=== PATIENT | male | born 1995 | race Caucasian/White ===

== ENCOUNTER 2023-01-26 07:27 | Observation (INO) | payer BC ==
[2023-01-26] MEDS ORDERED: SODIUM CHLORIDE 0.9% 1,000 ML IV STA ×3 (07:33→09:17)
[2023-01-26] MEDS ORDERED: levETIRAcetam IV 500 MG/5 ML VIAL IVP STA (07:33)
[2023-01-26 07:37] LABS: Glucose,Whole Blood 101 mg/dL (70-110)
[2023-01-26] MEDS ORDERED: MORPHINE SULFATE 2 MG/ML SYRINGE IVP STA (07:40)
[2023-01-26 07:59] LABS: Basophils % (A) 1 %; Eosinophils # (A) 0.1 k/uL (0-0.7); Eosinophils % (A) 2 %; HCT 45.7 % (39.0-53.0); HGB 15.9 gm/dL (13.0-17.5); Lymphocytes # (A) 2.9 k/uL (1.0-4.8); Lymphocytes % (A) 36 %; MCH 31.5 pg (25.0-35.0); MCHC 34.7 g/dL (31.0-37.0); MCV 90.8 fL (80.0-100.0); Mean Platelet Volume 7.5; Monocytes # (A) 0.5 k/uL (0-1.0); Monocytes % (A) 6 %; Neutrophils # (A) 4.4 k/uL (1.3-7.7); Neutrophils % (A) 55 %; Platelet Count 268 k/uL (150-450); RBC 5.04 m/uL (4.30-5.90); RDW 11.7 % (11.5-15.5); WBC 8.1 k/uL (3.8-10.6)
[2023-01-26 08:09] LABS: ALT 26 U/L (4-49); AST 31 U/L (17-59); Acetaminophen <10.0 ug/mL; African American GFR (CKD) >90 (>60 ml/min/1.73 sqM); Albumin 4.7 g/dL (3.5-5.0); Alcohol <10 mg/dL; Alkaline Phosphatase 55 U/L (38-126); Anion Gap 14 mmol/L; Blood Urea Nitrogen 11 mg/dL (9-20); Calcium 9.2 mg/dL (8.4-10.2); Carbon Dioxide 20 mmol/L (22-30); Chloride 106 mmol/L (98-107); Glucose 104 mg/dL (74-99); Magnesium 2.5 mg/dL (1.6-2.3); Non-African American GFR(CKD) >90 (>60 ml/min/1.73 sqM); Salicylate <1.0 mg/dL; Sodium 140 mmol/L (137-145); Total Bilirubin 0.8 mg/dL (0.2-1.3); Total Protein 7.8 g/dL (6.3-8.2)
--- NOTE | 2023-01-26 08:16 | ED ---
General Adult HPI - General Chief complaint: Seizure Stated complaint: Seizure Time Seen by Provider: 01/26/23 07:33 Source: patient, EMS, RN notes reviewed, old records reviewed Mode of arrival: EMS - History of Present Illness Initial comments: Patient is a 28 year old male who presents emergency department for suspected new-onset seizure. Patient was found convulsing on the ground with general tonic-clonic movements at home in the bathroom this morning by a friend. Has no history of seizures. Was drinking alcohol last night and does endorse drinking 12 beers. Denies any other drug use. States he doesn't remember getting up this morning. Currently is alert and oriented 4. Believes he may have hit the side of his tongue. Did not suffer urinary incontinence. Denies any bowel or bladder incontinence or retention. Denies any lower extremity paralysis. Denies any saddle anesthesias. Is not on blood thinners. Fell down and has an abrasion on his upper lip is complaining of low back pain, paraspinal neck pain, as well as left big toe pain. Patient was playing kickball last night which is the last thing really remembers. States he was drinking last night as well. Minimal this morning with the above symptoms. His no history of seizures. No known family history of seizures. Presents for further evaluation at this time.Patient states he only drinks socially and occasionally with no history of alcohol withdrawals. - Related Data Home Medications Medication Instructions Recorded Confirmed No Known Home Medications 01/26/23 01/26/23 Previous Rx's Medication Instructions Recorded Ibuprofen [Motrin] 800 mg PO Q8HR PRN #20 tab 11/25/15 Allergies Allergy/AdvReac Type Severity Reaction Status Date / Time iodine Allergy Unknown Verified 01/26/23 08:33 Review of Systems ROS Statement: Those systems with pertinent positive or pertinent negative responses have been documented in the HPI. Review of Systems: CONST: Denies fever EYES: Denies blurry vision ENT: Denies nasal congestion C/V: Denies Chest pain RESP: Denies shortness of breath GI: Denies abdominal pain : Denies dysuria SKIN: Denies rash. MSK: Endorses back pain, left big toe pain. NEURO: Denies headache ROS Other: All systems not noted in ROS Statement are negative. Past Medical History Past Medical History: Unable to Obtain History of Any Multi-Drug Resistant Organisms: None Reported Past Surgical History: Unable to Obtain Past Psychological History: No Psychological Hx Reported Smoking Status: Unknown if ever smoked Past Alcohol Use History: Unable to Obtain Past Drug Use History: Unable to Obtain General Exam - General Exam Comments Initial Comments: General: Appears in no acute distress. HEAD: Abrasion to upper lip. Mild tenderness palpation over the bridge of the nose with no obvious deformity. Negative wade sign. Negative raccoon eyes. EYES: PERRLA, EOMI, conjunctiva normal, no discharge. Pupils are 2 mm and equal bilaterally. ENT: Hearing grossly intact, normal oropharynx. Mild abrasion to the tongue. RESPIRATORY: Clear breath sounds bilaterally. No wheezes, rales, or rhonchi. C/V: Regular rate and rhythm. S1 and S2 auscultated, no edema, peripheral pulses 2+ and intact throughout ABD: Abd is soft, nontender, nondistended EXT: Normal range of motion, no obvious deformity. Tenderness to palpation over the left big toe at the MTP joint. Tenderness to palpation of the paraspinal muscles of the cervical spine. Tenderness to palpation of the lower thoracic and lumbar spine, and appears to be midline with no obvious step-offs or deformities. Pelvis is stable. SKIN: No rashes or lesions observed on exposed skin. NEURO: Alert and oriented x 4. Cranial nerves II-XII intact. No focal sensory or strength deficits. GCS of 15. NIH is 0. Course Vital Signs 01/26/23 01/26/23 07:28 09:14 Temperature 97 F L Pulse Rate 97 74 Respiratory 19 18 Rate Blood Pressure 148/87 115/64 O2 Sat by Pulse 98 99 Oximetry Medical Decision Making - Medical Decision Making Was pt. sent in by a medical professional or institution (, PA, IGNITER ASSEMBLER, urgent care, hospital, or senior care...) When possible be specific @ -No Did you speak to anyone other than the patient for history (EMS, parent, family, police, friend...)? What history was obtained from this source @ -No Did you review nursing and triage notes (agree or disagree)? Why? @ -I reviewed and agree with nursing and triage notes Were old charts reviewed (outside hosp., previous admission, EMS record, old EKG, old radiological studies, urgent care reports/EKG's, senior care records)? Report findings @ -Old EKG reviewed from May 2021 Differential Diagnosis (chest pain, altered mental status, abdominal pain women, abdominal pain men, vaginal bleeding, weakness, fever, dyspnea, syncope, headache, dizziness, GI bleed, back pain, seizure, CVA, palpatations, mental health, musculoskeletal)? @ -Differential Seizure: Recurrent seizure disorder, febrile seizure, alcohol withdrawal, stimulants, meningitis, encephalitis, intercranial hemorrhage, intracranial tumor, stroke, eclampsia, thyrotoxicosis, hypocalcemia, hyponatremia, hypernatremia, hypomagnesemia, psychogenic, this is not meant to be an all-inclusive list. EKG interpreted by me (3pts min.). @ -As above X-rays interpreted by me (1pt min.). @ -Chest, pelvis, foot x-rays negative for any obvious traumatic injury. Right shoulder x-ray also negative for any obvious traumatic injury. CT interpreted by me (1pt min.). @ -CT imaging the spine, brain, face negative for any obvious acute treatment injury except for a subtle right nasal bone fracture. Patient is not slightly tender on that side of his nose and states it may be old. U/S interpreted by me (1pt. min.). @ -None done What testing was considered but not performed or refused? (CT, X-rays, U/S, labs)? Why? @ -None What meds were considered but not given or refused? Why? @ -None Did you discuss the management of the patient with other professionals (professionals i.e. , PA, IGNITER ASSEMBLER, lab, RT, psych nurse, social media editor, intellectual property lawyer, teacher, security control room officer, ed case manager)? Give summary @ -Discussed with the admitting physician, Dr. Polo who accepted the admission. Was smoking cessation discussed for >3mins.? @ -No Was critical care preformed (if so, how long)? @ -No Were there social determinants of health that impacted care today? How? (Homelessness, low income, unemployed, alcoholism, drug addiction, transportation, low edu. Level, literacy, decrease access to med. care, residential, rehab)? @ -No Was there de-escalation of care discussed even if they declined (Discuss DNR or withdrawal of care, Hospice)? DNR status @ -No What co-morbidities impacted this encounter? (DM, HTN, Smoking, COPD, CAD, Cancer, CVA, ARF, Chemo, Hep., AIDS, mental health diagnosis, sleep apnea, morbid obesity)? @ -None Was patient admitted / discharged? Hospital course, mention meds given and route, prescriptions, significant lab abnormalities, going to OR and other pertinent info. @ -Based on the patient's presentation and physical exam, presents with suspected new-onset seizure. We will obtain labs, as well as CT brain, CT C- spine imaging in addition to chest and pelvis x-ray and toe x-ray. Patient be symptomatically treated with IV fluids, IV analgesia medications, as well as push of IV Keppra. Seizure precautions ordered. Vital signs within acceptable limits. Cervical collar in place and will remain in place until imaging is completed. EKG showed no signs of acute ischemia.Patient's imaging negative for any obvious acute medical injury other than possible acute versus chronic right nasal bone fracture. Patient's labs to support an acute seizure, as lactic acid is elevated to 4.7. We will repeat and continue with fluid hydration. On reevaluation, patient is now complaining of right shoulder discomfort but has normal range of motion. We will obtain an x-ray of the shoulder. We discussed his workup. As this is a new seizure of unknown etiology, we will admit the patient for neuro evaluation. He was in agreement this plan. Cervical collar was removed is his C-spine was cleared. He has had no further seizures while here in the emergency department. I spoke with the admitting physician, Dr. Polo who accepted the patient. Neurology Dr. López was consulted. Undiagnosed new problem with uncertain prognosis? @ -No Drug Therapy requiring intensive monitoring for toxicity (Heparin, Nitro, Insulin, Cardizem)? @ -No Were any procedures done? @ -No Diagnosis/symptom? @ -Seizure, suspected Acute, or Chronic, or Acute on Chronic? @ -Acute Uncomplicated (without systemic symptoms) or Complicated (systemic symptoms)? @ -Complicated Side effects of treatment? @ -No Exacerbation, Progression, or Severe Exacerbation? @ -No Poses a threat to life or bodily function? How? (Chest pain, [place], [place], pneumonia, PE, COPD, DKA, ARF, appy, cholecystitis, CVA, Diverticulitis, Homicidal, Suicidal, threat to staff... and all critical care pts) @ -Potentially, yes Diagnosis/symptom? @ -Right nasal bone fracture Acute, or Chronic, or Acute on Chronic? @ -Unknown chronicity Uncomplicated (without systemic symptoms) or Complicated (systemic symptoms)? @ -Uncomplicated Side effects of treatment? @ -none Exacerbation, Progression, or Severe Exacerbation] @ -no Poses a threat to life or bodily function? @ -no Diagnosis/symptom? @ -Muscle sprains, strains Acute, or Chronic, or Acute on Chronic? @ -Acute Uncomplicated (without systemic symptoms) or Complicated (systemic symptoms)? @ -Uncomplicated Side effects of treatment? @ -none Exacerbation, Progression, or Severe Exacerbation] @ -no Poses a threat to life or bodily function? @ -no - Lab Data Result diagrams: 01/26/23 07:46 01/26/23 07:46 Lab Results 01/26/23 01/26/23 01/26/23 Range/Units 07:34 07:46 07:46 WBC 8.1 (3.8-10.6) k/uL RBC 5.04 (4.30-5.90) m/uL Hgb 15.9 (13.0-17.5) gm/dL Hct 45.7 (39.0-53.0) % MCV 90.8 (80.0-100.0) fL MCH 31.5 (25.0-35.0) pg MCHC 34.7 (31.0-37.0) g/dL RDW 11.7 (11.5-15.5) % Plt Count 268 (150-450) k/uL MPV 7.5 Neutrophils % 55 % Lymphocytes % 36 % Monocytes % 6 % Eosinophils % 2 % Basophils % 1 % Neutrophils # 4.4 (1.3-7.7) k/uL Lymphocytes # 2.9 (1.0-4.8) k/uL Monocytes # 0.5 (0-1.0) k/uL Eosinophils # 0.1 (0-0.7) k/uL Basophils # 0.0 (0-0.2) k/uL Sodium 140 (137-145) mmol/L Potassium 4.0 (3.5-5.1) mmol/L Chloride 106 (98-107) mmol/L Carbon Dioxide 20 L (22-30) mmol/L Anion Gap 14 mmol/L BUN 11 (9-20) mg/dL Creatinine 0.94 (0.66-1.25) mg/dL Est GFR (CKD-EPI)AfAm >90 (>60 ml/min/1.73 sqM) Est GFR (CKD-EPI)NonAf >90 (>60 ml/min/1.73 sqM) Glucose 104 H (74-99) mg/dL POC Glucose (mg/dL) 101 (70-110) mg/dL POC Glu Engineer Specialist ID Chris Mejia Plasma Lactic Acid Mani (0.7-2.0) mmol/L Calcium 9.2 (8.4-10.2) mg/dL Magnesium 2.5 H (1.6-2.3) mg/dL Total Bilirubin 0.8 (0.2-1.3) mg/dL AST 31 (17-59) U/L ALT 26 (4-49) U/L Alkaline Phosphatase 55 (38-126) U/L Total Protein 7.8 (6.3-8.2) g/dL Albumin 4.7 (3.5-5.0) g/dL Salicylates <1.0 mg/dL Acetaminophen <10.0 ug/mL Serum Alcohol <10 mg/dL 01/26/23 Range/Units 07:46 WBC (3.8-10.6) k/uL RBC (4.30-5.90) m/uL Hgb (13.0-17.5) gm/dL Hct (39.0-53.0) % MCV (80.0-100.0) fL MCH (25.0-35.0) pg MCHC (31.0-37.0) g/dL RDW (11.5-15.5) % Plt Count (150-450) k/uL MPV Neutrophils % % Lymphocytes % % Monocytes % % Eosinophils % % Basophils % % Neutrophils # (1.3-7.7) k/uL Lymphocytes # (1.0-4.8) k/uL Monocytes # (0-1.0) k/uL Eosinophils # (0-0.7) k/uL Basophils # (0-0.2) k/uL Sodium (137-145) mmol/L Potassium (3.5-5.1) mmol/L Chloride (98-107) mmol/L Carbon Dioxide (22-30) mmol/L Anion Gap mmol/L BUN (9-20) mg/dL Creatinine (0.66-1.25) mg/dL Est GFR (CKD-EPI)AfAm (>60 ml/min/1.73 sqM) Est GFR (CKD-EPI)NonAf (>60 ml/min/1.73 sqM) Glucose (74-99) mg/dL POC Glucose (mg/dL) (70-110) mg/dL POC Glu Engineer Specialist ID Plasma Lactic Acid Mani 4.7 H* (0.7-2.0) mmol/L Calcium (8.4-10.2) mg/dL Magnesium (1.6-2.3) mg/dL Total Bilirubin (0.2-1.3) mg/dL AST (17-59) U/L ALT (4-49) U/L Alkaline Phosphatase (38-126) U/L Total Protein (6.3-8.2) g/dL Albumin (3.5-5.0) g/dL Salicylates mg/dL Acetaminophen ug/mL Serum Alcohol mg/dL - EKG Data -: EKG Interpreted by Me EKG Comments: 12-lead Electrocardiogram Interpretation Note EKG was reviewed and interpreted by myself. 12-lead ECG performed at 0738 is interpreted by me as revealing normal sinus rhythm at a rate of 83 beats per minute. Earling is normal. AR Intervals 148 ms, QRS duration is 90 ms, QTc is 405 ms.. J-point elevation present, appears chronic. There were no ST or T wave abnormalities to suggest myocardial ischemia or injury. R wave progression across the precordium was satisfactory. By my interpretation this EKG is non- diagnostic for acute ischemia. Compared with EKG from May 2021 with no significant change. Disposition Clinical Impression: New onset seizure, Muscle strain, Nasal bone fractures Disposition: ADMITTED IP TO THIS HOSP Condition: Stable Instructions (If sedation given, give patient instructions): Seizure/Epilepsy Discharge Instructions & Follow-Up Referrals: Mumtaz Polo MD [Primary Care Provider] - 1-2 days Time of Disposition: 09:16
--- NOTE | 2023-01-26 08:41 | CT ---
EXAMINATION TYPE: CT brain cspine wo con, CT facial bones wo con CT DLP: 1306.7 mGycm, Automated exposure control for dose reduction was used. DATE OF EXAM: 01/26/2023 8:30 AM COMPARISON: None.. CLINICAL INDICATION:Male, 28 years old with history of fall, pain; Fall, pain LOC unknown (accession [id number]), Fall, pain (accession [id number]) TECHNIQUE: Brain: Multiple axial CT images of the brain were obtained without IV contrast. Cspine: Axial CT images from the skull base to the inferior aspect of T2 we obtained without intraven ous contrast. Coronal and sagittal reformatted images were also reviewed. Facial bones: Axial CT images of the facial bones were obtained. Coronal and sagittal reformatted sampson ges were also reviewed. FINDINGS: Brain: Extra-axial spaces: No abnormal extra-axial fluid collections. Ventricular system: Within normal limits Cerebral parenchyma: No acute intraparenchymal hemorrhage or mass effect. The rodriguez-white junction is well differentiated. Cerebellum: Unremarkable. Mass effect: No evidence of midline shift. Intracranial vasculature: unremarkable Soft tissues: Normal. Calvarium/osseous structures: No depressed skull fracture. Paranasal sinuses and mastoid air cells: Clear. Visualized orbits: Orbital contents are intact. Cervical spine: Fracture: None. Osseous structures: Unremarkable Vertebral alignment: Within normal limits. Spinal canal/Neural Foramina: No evidence of significant spinal canal narrowing. No evidence for sign ificant neural foraminal stenosis. Neck soft tissues: Prevertebral soft tissues are within normal limits. Other: The airway is patent. Patchy tree-in-bud opacities within the right upper lobe. Facial bones: Acute minimally depressed right nasal bone fracture with 1 mm of depression. There is minimal overlyi ng soft tissue edema. The orbital contents are unremarkable. The temporal-mandibular joints appear sy mmetric. Mild mucosal thickening of the left frontal sinus. The mastoid air cells are clear. IMPRESSION: 1. No acute intracranial process. 2. No evidence of cervical spine fracture. 3. Acute minimally depressed right nasal bone fracture. 4. Patchy tree-in-bud opacities within the right upper lobe suggesting an infectious/inflammatory pr ocess.
--- NOTE | 2023-01-26 08:44 | CT ---
EXAMINATION TYPE: CT thor lumbar spine wo con CT DLP: 1495 mGycm, Automated exposure control for dose reduction was used. DATE OF EXAM: 01/26/2023 8:30 AM COMPARISON: CT chest abdomen pelvis 05/14/2021. CLINICAL INDICATION:Male, 28 years old with history of fall, pain; PHH, Fall, pain TECHNIQUE: Axial images of the thoracolumbar spine were obtained without contrast. Coronal and sagitt al reformats were performed. FINDINGS: The thoracic vertebral bodies have preserved heights and alignment. Intervertebral discs and osseous structures have normal appearance. No significant spinal canal or neural foraminal steno sis is identified. Patchy tree-in-bud opacities within the posterior aspect of the right upper lobe. IMPRESSION: 1. No acute traumatic process of the thoracolumbar spine. 2. Patchy tree-in-bud opacities within the right upper lobe suggesting an infectious/inflammatory pr ocess.
--- NOTE | 2023-01-26 08:52 | XR ---
EXAMINATION TYPE: XR chest 1V DATE OF EXAM: 01/26/2023 8:38 AM COMPARISON: Chest radiographs from 05/14/2021 TECHNIQUE: XR chest 1V Frontal view of the chest. CLINICAL INDICATION:Male, 28 years old with history of fall, pain; FINDINGS: Lungs/Pleura: There is no evidence of pleural effusion, focal consolidation, or pneumothorax. Pulmonary vascularity: Unremarkable. Heart/mediastinum: Cardiomediastinal silhouette is unremarkable. Musculoskeletal: No acute osseous pathology. IMPRESSION: No acute cardiopulmonary disease/process.
--- NOTE | 2023-01-26 08:53 | XR ---
EXAMINATION TYPE: XR pelvis AP view DATE OF EXAM: 01/26/2023 8:41 AM INDICATION: Patient age:Male; 28 years old; Reason for study: fall, pain; PHH. COMPARISON: Pelvic radiograph 05/14/2021 TECHNIQUE: The pelvis was examined in a single projection. FINDINGS: There is no evidence of fracture or dislocation. There is no soft tissue abnormality. No a bnormal calcifications are present. IMPRESSION: No acute osseous pathology.
--- NOTE | 2023-01-26 08:54 | XR ---
EXAMINATION TYPE: XR foot limited LT DATE OF EXAM: 01/26/2023 COMPARISON: NONE HISTORY: Pain, fall TECHNIQUE: Frontal and lateral views of the left foot are submitted for evaluation. FINDINGS: There is no evidence for fracture or dislocation. Ankle mortise is intact. Soft tissues are within normal limits. IMPRESSION: No evidence for acute fracture.
[2023-01-26] MEDS ORDERED: MORPHINE SULFATE 4 MG/ML SYRINGE IVP STA (08:57)
[2023-01-26 09:16] LABS: Appearance,Urine Clear (Clear); Bilirubin,Urine Negative (Negative); Blood,Urine Negative (Negative); Glucose,Urine (UA) Negative (Negative); Ketones,Urine Trace (Negative); Leukocyte Esterase,Urine Negative (Negative); Nitrite,Urine Negative (Negative); PH, Urine 6.5 (5.0-8.0); Protein,Urine Trace (Negative); Specific Gravity,Urine 1.024 (1.001-1.035); Urobilinogen,Urine <2.0 mg/dL (<2.0)
[2023-01-26] MEDS ORDERED: ACETAMINOPHEN TAB 325 MG TAB PO PRN (09:29)
[2023-01-26] MEDS ORDERED: NALOXONE 0.4 MG/ML 1 ML VIAL IV PRN (09:29)
[2023-01-26 09:44] LABS: Amphetamine Screen,Urine Not Detected (NotDetected); Barbiturate Screen,Urine Not Detected (NotDetected); Benzodiazepines Screen,Urine Not Detected (NotDetected); Cocaine Screen,Urine Detected (NotDetected); Color,Urine Yellow; Methadone Screen, Urine Not Detected (NotDetected); Opiate Screen,Urine Detected (NotDetected); Oxycodone Screen, Urine Not Detected (NotDetected); Phencyclidine Screen,Urine Not Detected (NotDetected); Tricyclic Antidepressant,Urine Not Detected (NotDetected); Urn Cannabinoid Scrn Not Detected (NotDetected)
--- NOTE | 2023-01-26 10:01 | XR ---
EXAMINATION TYPE: XR shoulder limited RT DATE OF EXAM: 01/26/2023 COMPARISON: NONE HISTORY: Pain TECHNIQUE: Three views are submitted. FINDINGS: The osseous structures are intact. There is no acute fracture or dislocation. The AC joint is maint ained. IMPRESSION: 1. No acute process.
[2023-01-26] MEDS: MORPHINE SULFATE 4 MG/ML SYRINGE IV PRN ×2 (15:58→21:02)
[2023-01-26] MEDS: KETOROLAC 15 MG/ML 1 ML VIAL IVP PRN (19:23)
[2023-01-26] MEDS: levETIRAcetam 500 MG TAB PO SCH (21:01)
--- NOTE | 2023-01-26 23:12 | EEG ---
ELECTROENCEPHALOGRAM REPORT PREAMBLE: This is a 28-year-old male with new onset seizure. EEG FINDINGS: This is a 21-channel digital EEG recorded with video component, utilizing 10/20 international system with referential and bipolar montages. Background consists of well developed, well regulated moderate voltage activity in 9-10 hertz alpha. Background is posterior dominant and reactive to eye opening and closing. Photic driving response was not seen. The patient was drowsy during most of the study with presence of vertex waves. Stage 2 sleep was attained with presence of sleep spindles. No focal or generalized epileptiform activity was seen. EKG channel showed no obvious arrhythmia. IMPRESSION: This is a normal EEG during wakefulness, drowsiness, and stage 2 sleep. MMODL / IJN: [id number] /
[2023-01-27] MEDS: MORPHINE SULFATE 4 MG/ML SYRINGE IV PRN ×3 (00:46→08:20)
[2023-01-27] MEDS: levETIRAcetam 500 MG TAB PO SCH (08:20)
--- NOTE | 2023-01-27 08:49 | P.HPIM ---
History of Present Illness H&P Date: 01/27/23 Chief Complaint: Tonic-clonic activity The patient's 28-year-old white male with history of alcohol abuse in the past who stated yesterday that he was getting ready for work and started getting confused when testing his boss telling him that he was going to be slightly late about 10 minutes. His describes that she heard a thud and thought it was there BP and went to investigate and saw the patient with tonic-clonic activity frothing at the mouth. He was then admitted and evaluated and is now admitted for new-onset seizure. Workup radiologically has been nominal. However her urine drug screen does show cocaine use. He admits to this in the last week. No family history of seizure disorder in the past Review of Systems All systems: negative Past Medical History Past Medical History: Unable to Obtain History of Any Multi-Drug Resistant Organisms: None Reported Past Surgical History: Unable to Obtain Past Anesthesia/Blood Transfusion Reactions: No Reported Reaction Smoking Status: Never smoker Medications and Allergies Home Medications Medication Instructions Recorded Confirmed Type Ibuprofen [Motrin] 800 mg PO Q8HR PRN #20 tab 11/25/15 Rx No Known Home Medications 01/26/23 01/26/23 History Allergies Allergy/AdvReac Type Severity Reaction Status Date / Time iodine Allergy Unknown Verified 01/26/23 08:33 Physical Exam Vitals: Vital Signs Temp Pulse Pulse Resp BP BP Pulse Ox 01/27/23 01:44 98.2 F 84 16 116/72 97 01/27/23 01:15 18 01/27/23 00:10 97.6 F 56 L 18 115/74 99 01/26/23 19:24 64 18 132/83 99 01/26/23 18:55 96.7 F L 70 17 123/75 97 01/26/23 16:00 75 18 121/77 99 01/26/23 11:39 71 18 109/57 98 01/26/23 10:16 76 18 125/78 100 01/26/23 09:14 74 18 115/64 99 Intake and Output 01/26/23 01/27/23 01/27/23 22:59 06:59 14:59 Intake Total 240 Output Total 200 Balance 40 Intake: Oral 240 Output: Urine 200 Other: Weight 83.915 kg - Constitutional General appearance: no acute distress - EENT Eyes: EOMI - Neck Neck: no lymphadenopathy - Respiratory Respiratory: bilateral: CTA - Cardiovascular Rhythm: regular Heart sounds: normal: S1, S2 Abnormal Heart Sounds: no S3 Gallop - Gastrointestinal General gastrointestinal: soft, no tenderness - Integumentary Integumentary: no cellulitis - Musculoskeletal Musculoskeletal: gait normal Results CBC & Chem 7: 01/26/23 07:46 01/26/23 07:46 Labs: Abnormal Lab Results - Last 24 Hours (Table) 01/26/23 01/26/23 01/26/23 Range/Units 09:09 09:09 10:40 Plasma Lactic Acid Mani 0.6 L (0.7-2.0) mmol/L Urine Protein Trace H (Negative) Urine Ketones Trace H (Negative) Urine Opiates Screen Detected H (NotDetected) Urine Cocaine Screen Detected H (NotDetected) Thrombosis Risk Factor Assmnt - Choose All That Apply Any of the Below Risk Factors Present?: No Other Risk Factors: No Other congenital or acquired thrombophilia - If yes, enter type in comment: No Thrombosis Risk Factor Assessment Level: Very Low Risk Assessment and Plan (1) Alcohol abuse Current Visit: Yes Status: Acute Code(s): F10.10 - ALCOHOL ABUSE, UNCOMPLICATED SNOMED Code(s): 22169683 (2) Cocaine abuse Current Visit: Yes Status: Acute Code(s): F14.10 - COCAINE ABUSE, UNCOMPLICATED SNOMED Code(s): 49398588 (3) New onset seizure Current Visit: Yes Status: Acute Code(s): R56.9 - UNSPECIFIED CONVULSIONS SNOMED Code(s): 66527771 Plan: Await appropriate neurologic evaluation. The patient has been seizure-free since admission. Reconcile medications as needed. Counseled at length about illicit substance abuse.
--- NOTE | 2023-01-27 09:16 | P.CNNES ---
History of Present Illness Consult date: 01/26/23 Requesting physician: Lino Paiz Reason for Consult: New onset seizure History of Present Illness: Patient is a 28-year-old male came to the hospital by ambulance today at 7:27 AM for new onset seizure. Patient states that he woke up at around 6:15 AM this morning and felt slightly dizzy, very tired. At around 6:30 AM, he was texting his boss that he'll be coming a bit late, but while texting, he noticed that the content did not make sense. He tried to delete the text, and wanted to take shower. He then remembers waking up in the ambulance. He remembers feeling waking up confused and felt that he just had a sleep and wanted to sleep more. Apparently he fell into the door, face forward and then onto the ground. His came over and saw patient having a seizure during which his eyes rolled back was unconscious snoring. The seizure lasted for less than a minute. He did not bite his tongue, did not lose control of urine. She called 911. As per EMS flow sheet when they arrived at the residence, patient was unconscious but breathing. Patient was laying prone on the floor. When his name was called, patient opened his eyes and was awake for the rest of the call. Patient's GCS was 14 in the respiration was 22. Patient's girlfriend stated that she heard a loud side and found her boyfriend on the floor having a seizure. Seizure lasted approximately 1 minute and then the patient stopped convulsing and was unresponsive until EMS arrived. Patient's blood glucose was weren't 10. Patient has no previous history of seizures. He has no medical history. Patient was able to walk with assistance to the stretcher and was moved to the back of the ambulance. Patient stated that he drank 12 beers the night before. Patient's vitals at the scene was blood pressure 160/90, pulse rate 115, respiration 22, saturation 100%. Patient's blood test shows normal CBC, CMP, lactate was 4.7. UA negative, urine drug screen positive for opiates, cocaine. Blood alcohol level was negative. Patient's previous admission on 05/14/2021 shows blood alcohol level of 264. Patient had a computed tomography scan of the head and cervical spine, which showed no acute intracranial process. No evidence of cervical spine fracture. Acute minimally depressed right nasal bone fracture. Patchy free in but opacities within the right upper lobe suggesting an infectious/inflammatory process. EKG shows sinus rhythm CT of the thoracic/lumbar spine showed no acute traumatic process of the thoracic spine. Chest x-ray was normal. Pelvic x-ray showed no acute process pathology, foot x-ray showed no fracture. Shoulder x- ray no acute process. Patient states that the day before, he worked all day and the son, was up and down the [employer] ordered, then he got for 2 hours and then played kickball for 1 h our. When he came home and played cards. He went to sleep at 12:30 midnight, and woke up at 6:20 AM. While in the ER, at around 2:15 PM, he was laying, trying to fall asleep, and he became dizzy, his eyes rolled back in the head, became stiff but did not go into full-blown seizure. It lasted for less than a minute. This was witnessed by patient's mother. Patient does not take any medication. No history of seizures as a child. No family history of epilepsy. Patient says that he has history of concussions twice in the past. One time he was intoxicated, fell and bumped his cheek into the dresser. It required stitching on the cheek. Patient states that he vapes nicotine. He drinks about 5 beer or bourbon, 3 times a week. Patient remembers that from Wednesday through Wednesday he drank quite heavily, about 8-10 drinks every single day. On Wednesday he took just 2 small sips of Best Lagunas and Coke. And then he presented with seizure on Wednesday morning, as mentioned above. Patient also drinks red bull or redline which is high in caffeine about 1 every other day or 2 every other day. Patient admits to abusing cocaine occasionally and he did it on Wednesday. He placed a cocaine bag on the tongue. Patient says that he usually wants to sleep about 4-5 hours and the night prior of seizure, he did sleep 5-1/2 hours. He was not sleep deprived. Review of Systems Constitutional: Denies chills, Denies fever Eyes: denies blurred vision, denies discharge, denies pain Ears: deny: decreased hearing, ear discharge Ears, nose, mouth and throat: Reports headache ([place], when works in the sun), Reports sore throat Cardiovascular: Denies chest pain, Denies shortness of breath Respiratory: Reports excessive sputum, Denies cough Gastrointestinal: Reports diarrhea, Denies abdominal pain, Denies nausea, Denies vomiting Musculoskeletal: Denies low back pain, Denies myalgias, Denies neck pain Integumentary: Denies pruritus, Denies rash Neurological: Reports as per HPI Psychiatric: Denies anxiety, Denies depression Endocrine: Reports fatigue, Denies weight change Hematologic/Lymphatic: Denies easy bleeding, Denies easy bruising Past Medical History Past Medical History: Unable to Obtain History of Any Multi-Drug Resistant Organisms: None Reported Past Surgical History: Unable to Obtain Past Psychological History: No Psychological Hx Reported Smoking Status: Unknown if ever smoked Past Alcohol Use History: Unable to Obtain Past Drug Use History: Unable to Obtain Medications and Allergies Home Medications Medication Instructions Recorded Confirmed Type Ibuprofen [Motrin] 800 mg PO Q8HR PRN #20 tab 11/25/15 Rx No Known Home Medications 01/26/23 01/26/23 History Allergies Allergy/AdvReac Type Severity Reaction Status Date / Time iodine Allergy Unknown Verified 01/26/23 08:33 Physical Examination - Vital Signs Vital Signs: Vital Signs Temp Pulse Resp BP Pulse Ox 01/26/23 16:00 75 18 121/77 99 01/26/23 11:39 71 18 109/57 98 01/26/23 10:16 76 18 125/78 100 01/26/23 09:14 74 18 115/64 99 01/26/23 07:28 97 F L 97 19 148/87 98 Intake and Output 01/26/23 01/26/23 01/26/23 06:59 14:59 22:59 Other: Weight 83.915 kg Patient is a young male, very pleasant, in no acute distress. His lower lip is slightly swollen from falling. There is no tongue bite, although he did bit inside of the lower lip, likely from fall. Patient is alert awake oriented to time place and person. Speech and language functions are normal. Patient can name and repeat very well. No aphasia or dysarthria. Attention, concentration and fund of knowledge is adequate. On cranial nerve examination, pupils are equal, round and reacting to light, visual claros are full on confrontation, with no neglect on double simultaneous stimulation. Extraocular muscles are intact with no nystagmus. Face is symmetric, tongue protrudes to the midline. Palatal elevation and sensation normal, hearing and shoulder shrug normal, facial sensation normal. On muscle strength testing, there is no pronator drift and the strength is normal in arms and legs distally and proximally, except hip flexion, which is 5- bilaterally related to pain. Patient having significant neck and lower back pain likely from fall or from the seizure. Deep tendon reflexes are symmetric and trace to 1 at the biceps and brachio radialis, absent in the lower limbs. Patient states that he always has no reflexes. Plantars are downgoing. Sensory to touch is equal with no neglect on double simultaneous stimulation. Cerebellar function showed no ataxia for [id number] testing. No dysdiadochokinesia. No ataxia for [id number] testing on either side. Tone and bulk of muscles normal. Gait deferred.. On general examination, there is no carotid bruit or murmur, S1-S2 audible. Chest is clear on consultation. Abdomen is soft nontender. No organomegaly, bowel sounds present. Peripheral pulses are present. No edema. Results - Laboratory Findings CBC and BMP: 01/27/23 08:02 01/27/23 08:02 Abnormal Lab Findings: Abnormal Labs 01/26/23 01/26/23 01/26/23 07:46 07:46 09:09 Carbon Dioxide 20 L Glucose 104 H Plasma Lactic Acid Mani 4.7 H* Magnesium 2.5 H Urine Protein Trace H Urine Ketones Trace H Urine Opiates Screen Urine Cocaine Screen 01/26/23 01/26/23 09:09 10:40 Carbon Dioxide Glucose Plasma Lactic Acid Mani 0.6 L Magnesium Urine Protein Urine Ketones Urine Opiates Screen Detected H Urine Cocaine Screen Detected H Assessment and Plan Assessment: * New onset seizure, likely provoked due to polysubstance abuse, and perhaps alcohol withdrawal. Patient drank very heavily for 5 days, and then stopped, and had a seizure 2 days later. Patient's urine also was positive for tari eren. Patient also consumes significant high energy drinks, which may all have contributed to the seizure. * Vapes nicotine * Alcoholism * Neck and low back pain, likely due to seizure/fall. Plan: * Patient's seizure was most likely provoked due to reasons mentioned above. * EEG was performed, which was normal. No epileptiform activity was seen. * No indication for antiepileptic medication, as the seizure was provoked. * Patient was informed of [place] state law of no driving unless seizure free for 6 months, climbing ladders, operating dangerous machinery or unsupervised swimming. * Patient strongly recommended to abstain from polysubstance abuse including cocaine, vaping, high energy drinks and alcoholism. * Observe overnight. If he remains stable, then we will be clear for discharge. * Thank you for the consult.
[2023-01-27 10:15] LABS: Basophils % (A) 0 %; Eosinophils # (A) 0.2 k/uL (0-0.7); Eosinophils % (A) 2 %; HCT 43.8 % (39.0-53.0); HGB 14.6 gm/dL (13.0-17.5); Lymphocytes # (A) 2.4 k/uL (1.0-4.8); Lymphocytes % (A) 27 %; MCH 31.2 pg (25.0-35.0); MCHC 33.3 g/dL (31.0-37.0); MCV 93.7 fL (80.0-100.0); Mean Platelet Volume 7.7; Monocytes # (A) 0.4 k/uL (0-1.0); Monocytes % (A) 4 %; Neutrophils # (A) 5.9 k/uL (1.3-7.7); Neutrophils % (A) 66 %; Platelet Count 227 k/uL (150-450); RBC 4.67 m/uL (4.30-5.90); RDW 11.8 % (11.5-15.5); WBC 8.9 k/uL (3.8-10.6)
[2023-01-27 10:19] LABS: African American GFR (CKD) >90 (>60 ml/min/1.73 sqM); Anion Gap 7 mmol/L; Blood Urea Nitrogen 6 mg/dL (9-20); Calcium 8.6 mg/dL (8.4-10.2); Carbon Dioxide 26 mmol/L (22-30); Chloride 103 mmol/L (98-107); Glucose 72 mg/dL (74-99); Non-African American GFR(CKD) >90 (>60 ml/min/1.73 sqM); Potassium 3.7 mmol/L (3.5-5.1); Sodium 136 mmol/L (137-145)
[2023-01-27 10:24] VITALS: TEMP 97.4
[2023-01-27] MEDS: KETOROLAC 15 MG/ML 1 ML VIAL IVP PRN (13:51)
[2023-01-27 16:17] VITALS: BP 113/67; PULSE 76; RESP 17
--- NOTE | 2023-01-27 18:44 | P.DS ---
Providers Date of admission: 01/26/23 09:30 Attending physician: Mumtaz Polo Consults: 01/26/23 09:17 Consult Physician Routine Consulting Provider: Sisi López Consult Reason/Comments: new onset seizure Do you want consulting provider notified?: Yes Primary care physician: Mumtaz Polo - Discharge Diagnosis(es) (1) Alcohol abuse Current Visit: Yes Status: Acute (2) Cocaine abuse Current Visit: Yes Status: Acute (3) New onset seizure Current Visit: Yes Status: Acute Hospital Course: This is an Discharge summary of a 28-year-old white male who is essentially admitted after having a witnessed tonic-clonic activity. The patient was evaluated with appropriate radiologic and neurologic scanning. All testing was nominal. Neurology was then consulted. We had a long discussion regarding substance abuse as I think he struggles with significant alcohol abuse history with cocaine in urine drug screen. We had a long discussion regarding support systems and Mitigating risk for causing some type of withdrawal type seizure. The patient is to refrain from driving at this time. The patient will follow up with neurology. Patient Condition at Discharge: Stable Plan - Discharge Summary Discharge Rx Participant: No New Discharge Prescriptions: Continue Ibuprofen [Motrin] 800 mg PO Q8HR PRN #20 tab PRN Reason: Pain No Action No Known Home Medications Discharge Medication List Ibuprofen [Motrin] 800 mg PO Q8HR PRN #20 tab 11/25/15 [Rx] No Known Home Medications 01/26/23 [History] Follow up Appointment(s)/Referral(s): Carrie Mon MD [REFERRING] - 1 Week Mumtaz Polo MD [Primary Care Provider] - 1-2 days Suraj Avelar MD [Medical Doctor] - 1 Week Maycol Sutton DO [STAFF PHYSICIAN] - 1 Week Patient Instructions/Handouts: Seizure/Epilepsy Discharge Instructions & Follow-Up Activity/Diet/Wound Care/Special Instructions: Follow up with one of the neurologists listed regarding need for MRI outpatient. Discharge/Stand Alone Forms: AA Denise Lujan, Outpatient Counseling, Inp Substance Abuse Facilities, Personal Lock Tender Chief Operator Discharge Disposition: HOME SELF-CARE Plan of Treatment: The patient will be followed closely and is to refrain from automobile driving at this time until cleared by neurology.
== END 2023-01-27 19:03 | disposition home or self-care (01) ==
LOC: MERGE 07:27 → EC 07:27 → 6NMEDSUR 09:30 → 3SCARD 13:20
PROVIDERS: ADMIT Family Medicine; ATTEND Family Medicine
DX: R56.9 Unspecified convulsions (principal); F10.239 Alcohol dependence with withdrawal, unspecified; F14.10 Cocaine abuse, uncomplicated
CPT/HCPCS: 96376 ×2; 96361; 96374; 96375; 99285; 36415; 95819; 93005; 80053; 80048; 83605; 83735; 85025 ×2; 81003; 80306; 80143; 80320; 80179; 72170; 73020; 73620; 71045; 72128; 72125; 72131; 70486; 70450; G0378 ×3; J2270 ×3; J1953; J1885 ×2

== ENCOUNTER 2023-01-31 01:07 | Emergency (ER) | payer BC ==
[2023-01-31 01:18] VITALS: TEMP 98.7
[2023-01-31] MEDS ORDERED: SODIUM CHLORIDE 0.9% 1,000 ML IV STA (01:20)
[2023-01-31] MEDS ORDERED: LORazepam 0.5 MG TAB PO PRN (01:21)
[2023-01-31] MEDS ORDERED: LORazepam 1 MG TAB PO PRN ×4 (01:21)
[2023-01-31] MEDS ORDERED: THIAMINE 100 MG/ML 2 ML VIAL IM STA (01:21)
[2023-01-31] MEDS ORDERED: KETOROLAC 15 MG/ML 1 ML VIAL IM STA (01:27)
[2023-01-31] MEDS ORDERED: KETOROLAC 15 MG/ML 1 ML VIAL IVP STA (01:27)
--- NOTE | 2023-01-31 01:38 | ED ---
Seizure HPI - General Chief Complaint: Seizure Stated Complaint: Seizure Time Seen by Provider: 01/31/23 01:19 Source: patient Mode of arrival: EMS Limitations: no limitations - History of Present Illness Initial Comments: Patient is a 28-year-old male who presents the emergency department after seizure. Patient was recently admitted to our hospital and evaluated for his first seizure. Patient had negative EEG. He was evaluated by neurology while in the hospital and it was thought to be an alcohol which all or drug-related seizure as cocaine and opioids were found in his urine. Tonight patient was at a wedding states he drank a few shots and several Best and Cokes. Patient had a seizure he does not know how long it lasted. States his friend caught him therefore he did not hit the ground. Patient is alert and oriented 4 currently. He reports low back pain and neck pain similar to pain he reported from his last seizure. He is accompanied with spasms. He has numbness and tingling down the left leg. Has history of sciatica. No numbness or tingling in the groin and buttock region. Denies leg weakness. Denies loss of bowel bladder function. Denies chest pain and shortness of breath. No headache, upper respiratory symptoms or fever. Denies recent drug use. - Related Data Previous Rx's Medication Instructions Recorded Cyclobenzaprine [Flexeril] 10 mg PO TID PRN #15 tab 01/31/23 Ibuprofen [Motrin] 800 mg PO Q8HR PRN #30 tab 01/31/23 Lidocaine 5% Patch [Lidoderm 5% 1 patch TOPICAL DAILY PRN #7 patch 01/31/23 Patch] predniSONE 50 mg PO DAILY #5 tab 01/31/23 Allergies Allergy/AdvReac Type Severity Reaction Status Date / Time dog dander Allergy Itching Verified 01/31/23 01:18 Review of Systems ROS Statement: Those systems with pertinent positive or pertinent negative responses have been documented in the HPI. ROS Other: All systems not noted in ROS Statement are negative. Past Medical History Past Medical History: No Reported History History of Any Multi-Drug Resistant Organisms: None Reported Past Surgical History: No Surgical Hx Reported Past Psychological History: No Psychological Hx Reported Smoking Status: Current every day smoker, Vaper Past Alcohol Use History: Occasional Past Drug Use History: None Reported General Exam Limitations: no limitations General appearance: alert ENT exam: Present: normal oropharynx Respiratory exam: Present: normal lung sounds bilaterally. Absent: respiratory distress, wheezes, rales, rhonchi, stridor Cardiovascular Exam: Present: regular rate, normal rhythm, normal heart sounds. Absent: systolic murmur, diastolic murmur, rubs, gallop, clicks Extremities exam: Present: normal inspection, full ROM, normal capillary refill Back exam: Present: normal inspection, full ROM, paraspinal tenderness (Lumbar, cervical), vertebral tenderness (Lumbar, cervical) Neurological exam: Present: alert, oriented X3 Expanded Sensory exam: Upper Extremity Light Touch: Normal, Lower Extremity Light Touch: Normal Motor strength exam: RUE: 5, LUE: 5, RLE: 5, LLE: 5 Psychiatric exam: Present: normal affect, normal mood Skin exam: Present: warm, dry, intact, normal color. Absent: rash Course Vital Signs 01/31/23 01/31/23 01/31/23 01:13 03:03 07:22 Temperature 98.7 F Pulse Rate 96 86 65 Respiratory 18 12 Rate Blood Pressure 127/76 124/73 98/53 O2 Sat by Pulse 97 98 99 Oximetry Medical Decision Making - Medical Decision Making EKG taken at 1:26, interpreted by myself Sinus tachycardia, no ST changes Ventricular rate 100, DE interval 160, QRS duration 90, QTc 383 Was pt. sent in by a medical professional or institution ([facility], [facility], urgent care, hospital, or intermediate...) When possible be specific @ -No Did you speak to anyone other than the patient for history (EMS, parent, family, police, friend...)? What history was obtained from this source @ -No Did you review nursing and triage notes (agree or disagree)? Why? @ -I reviewed and agree with nursing and triage notes Were old charts reviewed (outside hosp., previous admission, EMS record, old EKG, old radiological studies, urgent care reports/EKG's, intermediate records)? Report findings @ Reviewed previous CT which showed no acute process. Reviewed neurology admission note EEG normal Differential Diagnosis (chest pain, altered mental status, abdominal pain women, abdominal pain men, vaginal bleeding, weakness, fever, dyspnea, syncope, headache, dizziness, GI bleed, back pain, seizure, CVA, palpatations, mental health)? @ -Differential Seizure: Recurrent seizure disorder, febrile seizure, alcohol withdrawal, stimulants, meningitis, encephalitis, intercranial hemorrhage, intracranial tumor, stroke, eclampsia, thyrotoxicosis, hypocalcemia, hyponatremia, hypernatremia, hypomagnesemia, psychogenic, this is not meant to be an all-inclusive list. EKG interpreted by me (3pts min.). @ -As above X-rays interpreted by me (1pt min.). @ -No acute fracture or dislocation of the cervical or lumbar spine CT interpreted by me (1pt min.). @ -None done U/S interpreted by me (1pt. min.). @ -None done What testing was considered but not performed or refused? (CT, X-rays, U/S, labs)? Why? @ -None What meds were considered but not given or refused? Why? @ -None Did you discuss the management of the patient with other professionals (professionals i.e. , PA, [facility], lab, RT, psych nurse, social staff worker, splicer apprentice, teacher, staff nuclear weapons officer, lead case manager)? Give summary @ -No Was smoking cessation discussed for >3mins.? @ -No Was critical care preformed (if so, how long)? @ -No Were there social determinants of health that impacted care today? How? (Homeles sness, low income, unemployed, alcoholism, drug addiction, transportation, low edu. Level, literacy, decrease access to med. care, retirement, rehab)? @ -No Was there de-escalation of care discussed even if they declined (Discuss DNR or withdrawal of care, Hospice)? DNR status @ -No What co-morbidities impacted this encounter? (DM, HTN, Smoking, COPD, CAD, Cancer, CVA, ARF, Chemo, Hep., AIDS, mental health diagnosis, sleep apnea, morbid obesity)? @ -None] Was patient admitted / discharged? Hospital course, mention meds given and route, prescriptions, significant lab abnormalities, going to OR and other pertinent info. @ -[Patient presenting for recurrent seizure. He is alert and oriented 4. No neurological deficit on exam. EKG shows sinus tachycardia at 100 bpm there are nonspecific peaked t waves. Laboratory studies obtained no electrolyte abnormalities. Alcohol is 151. Urine drug screen is negative. X-ray interpreted by myself less radiology showing no acute cervical and lumbar spine fracture or dislocation. Results discussed with patient. At this time to definite etiology for seizure. I advised patient no driving until neurology clearance. Patient referred to provider enrollment specialist for persistent back pain. He'll be discharged with pain management, Flexeril for spasm, prednisone for radicular symptoms. Discussed sedating properties of Flexeril. He is to not drink alcohol or do drugs or taking Flexeril. Patient referred to neurology lisa luna. Undiagnosed new problem with uncertain prognosis? @ -No Drug Therapy requiring intensive monitoring for toxicity (Heparin, Nitro, Insuli n, Cardizem)? @ -No Were any procedures done? @ -No Diagnosis/symptom? @ -recurrent seizure, back pain, neck pain Acute, or Chronic, or Acute on Chronic? @ acute Uncomplicated (without systemic symptoms) or Complicated (systemic symptoms)? @ uncomplicated Side effects of treatment? @ -No Exacerbation, Progression, or Severe Exacerbation? @ -No Poses a threat to life or bodily function? How? (Chest pain, [place], [place], pneumonia, PE, COPD, DKA, ARF, appy, cholecystitis, CVA, Diverticulitis, Homicidal, Suicidal, threat to staff... and all critical care pts) @ -No Dr. López is my attending - Lab Data Result diagrams: 01/31/23 01:22 01/31/23 01:22 Lab Results 01/31/23 01/31/23 01/31/23 Range/Units 01:22 01:22 01:51 WBC 10.8 H (3.8-10.6) k/uL RBC 5.11 (4.30-5.90) m/uL Hgb 15.7 (13.0-17.5) gm/dL Hct 46.4 (39.0-53.0) % MCV 91.0 (80.0-100.0) fL MCH 30.7 (25.0-35.0) pg MCHC 33.8 (31.0-37.0) g/dL RDW 11.6 (11.5-15.5) % Plt Count 270 (150-450) k/uL MPV 8.0 Neutrophils % 77 % Lymphocytes % 17 % Monocytes % 4 % Eosinophils % 1 % Basophils % 1 % Neutrophils # 8.4 H (1.3-7.7) k/uL Lymphocytes # 1.8 (1.0-4.8) k/uL Monocytes # 0.4 (0-1.0) k/uL Eosinophils # 0.1 (0-0.7) k/uL Basophils # 0.1 (0-0.2) k/uL Sodium 141 (137-145) mmol/L Potassium 4.0 (3.5-5.1) mmol/L Chloride 106 (98-107) mmol/L Carbon Dioxide 22 (22-30) mmol/L Anion Gap 13 mmol/L BUN 11 (9-20) mg/dL Creatinine 0.76 (0.66-1.25) mg/dL Est GFR (CKD-EPI)AfAm >90 (>60 ml/min/1.73 sqM) Est GFR (CKD-EPI)NonAf >90 (>60 ml/min/1.73 sqM) Glucose 96 (74-99) mg/dL Calcium 9.1 (8.4-10.2) mg/dL Magnesium 2.0 (1.6-2.3) mg/dL Total Bilirubin 0.3 (0.2-1.3) mg/dL AST 32 (17-59) U/L ALT 29 (4-49) U/L Alkaline Phosphatase 52 (38-126) U/L Total Protein 8.3 H (6.3-8.2) g/dL Albumin 4.8 (3.5-5.0) g/dL Urine Color Colorless Urine Appearance Clear (Clear) Urine pH 6.0 (5.0-8.0) Ur Specific [place] 1.004 (1.001-1.035) Urine Protein Negative (Negative) Urine Glucose (UA) Negative (Negative) Urine Ketones Negative (Negative) Urine Blood Negative (Negative) Urine Nitrite Negative (Negative) Urine Bilirubin Negative (Negative) Urine Urobilinogen <2.0 (<2.0) mg/dL Ur Leukocyte Esterase Negative (Negative) Urine Opiates Screen Not Detected (NotDetected) Ur Oxycodone Screen Not Detected (NotDetected) Urine Methadone Screen Not Detected (NotDetected) Ur Propoxyphene Screen Not Detected (NotDetected) Ur Barbiturates Screen Not Detected (NotDetected) U Tricyclic Antidepress Not Detected (NotDetected) Ur Phencyclidine Scrn Not Detected (NotDetected) Ur Amphetamines Screen Not Detected (NotDetected) U Methamphetamines Scrn Not Detected (NotDetected) U Benzodiazepines Scrn Not Detected (NotDetected) Urine Cocaine Screen Not Detected (NotDetected) U Marijuana (THC) Screen Not Detected (NotDetected) Serum Alcohol 151 mg/dL Disposition Clinical Impression: Recurrent seizures, Neck pain, Back pain Disposition: HOME SELF-CARE Condition: Good Instructions (If sedation given, give patient instructions): Recurrent Seizures in Adults (ED) Additional Instructions: Take medication as directed. Do not drink alcohol or operate machinery and Flexeril as it can cause drowsiness. You should not drive until cleared by neurologist. Follow-up with neurology and provider enrollment specialist in 1-2 days. Return to the emergency department experience new, concerning, or worsening symptoms Prescriptions: Cyclobenzaprine [Flexeril] 10 mg PO TID PRN #15 tab PRN Reason: Muscle Spasm Lidocaine 5% Patch [Lidoderm 5% Patch] 1 patch TOPICAL DAILY PRN #7 patch PRN Reason: Pain Ibuprofen [Motrin] 800 mg PO Q8HR PRN #30 tab PRN Reason: Pain predniSONE 50 mg PO DAILY #5 tab Is patient prescribed a controlled substance at d/c from ED?: No Referrals: None,Stated [REFERRING] - 1-2 days Suraj Avelar MD [Medical Doctor] - 1-2 days Gregor Joseph MD [STAFF PHYSICIAN] - 1-2 days
[2023-01-31 01:44] LABS: ALT 29 U/L (4-49); AST 32 U/L (17-59); African American GFR (CKD) >90 (>60 ml/min/1.73 sqM); Albumin 4.8 g/dL (3.5-5.0); Alkaline Phosphatase 52 U/L (38-126); Anion Gap 13 mmol/L; Blood Urea Nitrogen 11 mg/dL (9-20); Calcium 9.1 mg/dL (8.4-10.2); Carbon Dioxide 22 mmol/L (22-30); Chloride 106 mmol/L (98-107); Glucose 96 mg/dL (74-99); Non-African American GFR(CKD) >90 (>60 ml/min/1.73 sqM); Sodium 141 mmol/L (137-145); Total Bilirubin 0.3 mg/dL (0.2-1.3); Total Protein 8.3 g/dL (6.3-8.2)
[2023-01-31 01:55] LABS: Alcohol 151 mg/dL
[2023-01-31 01:56] LABS: Basophils # (A) 0.1 k/uL (0-0.2); Basophils % (A) 1 %; Eosinophils # (A) 0.1 k/uL (0-0.7); Eosinophils % (A) 1 %; HCT 46.4 % (39.0-53.0); HGB 15.7 gm/dL (13.0-17.5); Lymphocytes # (A) 1.8 k/uL (1.0-4.8); Lymphocytes % (A) 17 %; MCH 30.7 pg (25.0-35.0); MCHC 33.8 g/dL (31.0-37.0); Monocytes # (A) 0.4 k/uL (0-1.0); Monocytes % (A) 4 %; Neutrophils # (A) 8.4 k/uL (1.3-7.7); Neutrophils % (A) 77 %; Platelet Count 270 k/uL (150-450); RBC 5.11 m/uL (4.30-5.90); RDW 11.6 % (11.5-15.5); WBC 10.8 k/uL (3.8-10.6)
[2023-01-31 02:17] LABS: Appearance,Urine Clear (Clear); Bilirubin,Urine Negative (Negative); Blood,Urine Negative (Negative); Color,Urine Colorless; Glucose,Urine (UA) Negative (Negative); Ketones,Urine Negative (Negative); Leukocyte Esterase,Urine Negative (Negative); Nitrite,Urine Negative (Negative); Protein,Urine Negative (Negative); Specific Gravity,Urine 1.004 (1.001-1.035); Urobilinogen,Urine <2.0 mg/dL (<2.0)
[2023-01-31 02:35] LABS: Amphetamine Screen,Urine Not Detected (NotDetected); Barbiturate Screen,Urine Not Detected (NotDetected); Benzodiazepines Screen,Urine Not Detected (NotDetected); Cocaine Screen,Urine Not Detected (NotDetected); Methadone Screen, Urine Not Detected (NotDetected); Opiate Screen,Urine Not Detected (NotDetected); Oxycodone Screen, Urine Not Detected (NotDetected); Phencyclidine Screen,Urine Not Detected (NotDetected); Tricyclic Antidepressant,Urine Not Detected (NotDetected); Urn Cannabinoid Scrn Not Detected (NotDetected)
[2023-01-31] MEDS ORDERED: CYCLOBENZAPRINE 10 MG TAB PO STA (02:58)
--- NOTE | 2023-01-31 05:19 | XR ---
EXAMINATION TYPE: XR cervical spine 5 views comp, XR lumbosacral spine 3 views DATE OF EXAM: 01/31/2023 COMPARISON: None HISTORY: 28-year-old male seizure with neck and back pain FINDINGS: Cervical spine: No predental space widening or prevertebral soft tissue swelling. Mild endplate spondylosis C6-C7. No significant bony neuroforaminal narrowing on either side. The cervicothoracic junction is obscured b y the patient's shoulders. Otherwise, remaining cervical alignment is preserved. Normal odontoid view . Lumbar spine: 5 lumbar type vertebral bodies. Vertebral body heights are preserved as are disc interspaces. Alignme nt is maintained. IMPRESSION: 1. Cervical spine: Mild early endplate spondylosis C6/C7. No prevertebral soft tissue swelling or mal alignment. 2. Lumbar spine: No vertebral compression collapse or malalignment.
[2023-01-31 07:23] VITALS: BP 98/53; PULSE 65; RESP 12
== END 2023-01-31 07:23 | disposition home or self-care (01) ==
LOC: MERGE 01:07 → EC 01:07
DX: R56.9 Unspecified convulsions (principal); M54.2 Cervicalgia; M54.50 Low back pain, unspecified; F17.290 Nicotine dependence, other tobacco product, uncomplicated; Z91.09 Other allergy status, other than to drugs and biological substances
CPT/HCPCS: 36415; 93005; 80053; 83735; 85025; 81003; 80306; 80320; 72050; 72110; 99285; 96374; 96361; J1885

== ENCOUNTER 2023-03-14 20:12 | Inpatient (IN) | payer BC, OTHER ==
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
[2023-03-16] MEDS ORDERED: HALOPERIDOL LACTATE 5 MG/ML 1 ML VIAL IM PRN (15:05)
[2023-03-16] MEDS ORDERED: MAGNESIUM HYDROXIDE 2,400 MG/30 ML CUP PO PRN (15:05)
[2023-03-16] MEDS ORDERED: ACETAMINOPHEN TAB 325 MG TAB PO PRN (15:05)
[2023-03-16] MEDS ORDERED: MAG HYDROX/AL HYDROX/SIMETH 30 ML CUP PO PRN (15:05)
[2023-03-16] MEDS ORDERED: haloperidoL 5 MG TAB PO PRN (15:05)
[2023-03-16] MEDS ORDERED: LORazepam 1 MG TAB PO PRN (15:05)
[2023-03-16] MEDS ORDERED: LORazepam 2 MG/ML INJ IM PRN (15:54)
[2023-03-16 16:14] VITALS: RESP 16
[2023-03-17 07:19] VITALS: TEMP 97.5
[2023-03-17] MEDS ORDERED: NICOTINE 14MG/24HR PATCH TRANSDERM SCH (09:00)
[2023-03-17 11:37] LABS: Basophils # (A) 0.1 k/uL (0-0.2); Basophils % (A) 1 %; Eosinophils # (A) 0.1 k/uL (0-0.7); Eosinophils % (A) 2 %; HCT 45.9 % (39.0-53.0); HGB 15.9 gm/dL (13.0-17.5); Lymphocytes # (A) 1.9 k/uL (1.0-4.8); Lymphocytes % (A) 39 %; MCH 31.3 pg (25.0-35.0); MCHC 34.6 g/dL (31.0-37.0); MCV 90.4 fL (80.0-100.0); Mean Platelet Volume 8.2; Monocytes # (A) 0.3 k/uL (0-1.0); Monocytes % (A) 7 %; Neutrophils # (A) 2.4 k/uL (1.3-7.7); Neutrophils % (A) 49 %; Platelet Count 231 k/uL (150-450); RBC 5.08 m/uL (4.30-5.90); RDW 11.4 % (11.5-15.5); WBC 4.9 k/uL (3.8-10.6)
[2023-03-17 11:57] LABS: ALT 24 U/L (4-49); AST 25 U/L (17-59); African American GFR (CKD) >90 (>60 ml/min/1.73 sqM); Albumin 4.8 g/dL (3.5-5.0); Alkaline Phosphatase 39 U/L (38-126); Anion Gap 8 mmol/L; Blood Urea Nitrogen 9 mg/dL (9-20); Calcium 9.7 mg/dL (8.4-10.2); Carbon Dioxide 28 mmol/L (22-30); Chloride 102 mmol/L (98-107); Glucose 80 mg/dL (74-99); Non-African American GFR(CKD) >90 (>60 ml/min/1.73 sqM); Potassium 4.5 mmol/L (3.5-5.1); Sodium 138 mmol/L (137-145); Total Bilirubin 0.8 mg/dL (0.2-1.3); Total Protein 7.5 g/dL (6.3-8.2)
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
[2023-03-17 16:26] LABS: Chol/HDL Ratio 3.25 Ratio; LDL Cholesterol,Calculated 114.9 mg/dL (0.0-131.0); VLDL Calculation 16.02 mg/dL (5.00-40.00)
[2023-03-18 07:09] VITALS: BP 102/61; PULSE 61
[2023-03-18] MEDS ORDERED: NALTREXONE HCL 50 MG TAB PO SCH (09:00)
[2023-03-18] MEDS ORDERED: CITALOPRAM HYDROBROMIDE 10 MG TAB PO SCH (09:00)
--- NOTE | 2023-03-18 13:31 | P.DS ---
Providers Date of admission: 03/16/23 15:01 Attending physician: Colt Roland MD Consults: 03/16/23 15:05 Consult Physician Routine Consulting Provider: Mumtaz Polo Reason/Comments: H & P and medical care. Do you want consulting provider notified?: Yes Primary care physician: Mumtaz Polo Hospital Course: Patient Name: Juan Diego Baxter Date of : 89 Patient Status: Inpatient Attending Provider: Colt Roland Date: 03/18/23 Initialization Date: 03/17/23 13:37 03/18/23 The patient was seen for a follow-up and agreed to talk to this literary writer Patient denies that he is having any issues or concerns and his states is looking forward to going home He says that he has talked to his girlfriend and that he plans to some more follow-up on AA meetings that he would like to do online He admits that he is embarrassed for his behavior and that he plans to try to stay abstinent He denies any intention of harming himself or others He feels that he intends to follow-up with his neurologist but also seemed to be satisfied when explained about the alcohol-related withdrawal symptoms and subsequent seizures although he should definitely follow up with the neurologist as suggested ad any follow-up with any alcohol or substance abuse treatment Past Medical History Past Medical History: No Reported History, Unable to Obtain History of Any Multi-Drug Resistant Organisms: None Reported Past Surgical History: No Surgical Hx Reported, Unable to Obtain Past Anesthesia/Blood Transfusion Reactions: No Reported Reaction Smoking Status: Current every day smoker, Vaper, Unknown if ever smoked Past Alcohol Use History: In today's to minimize Past Drug Use History: None Reported, Unable to Obtain MENTAL STATUS EXAM: General Appearance: Patient appears to be stated age is alert, [directable, and attempts to cooperate]. Appropriate interaction Remains vague superficial and projective Behavior: Patient is seated without any agitated behavior. Cooperative Speech: Patient's speech is [fluent and nonpressured.] Fluent Mood/Affect: Patient reports their mood is ["ok"], affect is congruent and constricted. Suicidality/Homicidality: Patient denies having any homicidal ideation intent or plan. [Denies any suicidal ideations intent or plan] Perceptions: Patient denies any visual hallucinations [and denies any auditory h allucinations] Though content/process: [There is no evidence of any delusional thought content and thought process is linear and goal-directed.] concrete. Appears to be minimizing and is projective and rationalizing Memory and concentration: AOX3, grossly intact for the purposes of this session. Can spell "WORLD" backwards Judgment and insight: Good STRENGTHS/WEAKNESSES: strength is that patient is [resilient]. Weakness is that patient [has poor judgment and is impulsive] INTELLECT: [average] PLAN: -Patient is admitted under [involuntary] status to MHU for stabilization of psychiatric symptoms and safety. Patient has [not] signed [adult voluntary form and] [medication consent] and is placed in patient's chart. -Medications : The patient appears to have gained better insight since his hospitalization Patient has no intention of harming himself or others and tends to have some outpatient follow-up He was also started on Celexa 10 mg daily and naltrexone 50 mg daily which he is able to tolerate well [-Patient was counselled on substance abuse and desired to cut back on use] -Patient was informed of the risks, benefits and side effects of the medication We'll also discuss with the patient regarding treating his mood changes with mood stabilizers and antidepressants as well as focus on working towards abstinence including other psychosocial programs like AA and NA after discharge Patient at this time appears to be stable for discharge with outpatient follow- up with the mental health services as well as [facility] and JEAN-CLAUDE Hare M.D. Plan - Discharge Summary New Discharge Prescriptions: No Action No Known Home Medications Discharge Medication List No Known Home Medications 03/14/23 [History] Follow up Appointment(s)/Referral(s): [facility] [Outside] - 03/25/23 1:30 pm (with intake) Mumtaz Polo MD [Primary Care Provider] - 1-2 days Patient Instructions/Handouts: Seizure/Epilepsy Discharge Instructions & Follow-Up Activity/Diet/Wound Care/Special Instructions: Avoid the use of street drugs and alcohol. Take all medications as prescribed. When you are in need of refills on your medications, please contact your medical provider and/or outpatient psychiatrist/provider to have this done. Please go to your scheduled outpatient appointment for aftercare treatment. If symptoms return or become worse, call the crisis line at and/or go to the nearest emergency room for evaluation. National Suicide Hotline 988.
== END 2023-03-18 15:19 | disposition home or self-care (01) | DRG 897 ==
LOC: EC 20:12 → 3MHU 03-16 15:01
PROVIDERS: ADMIT Psychiatry & Neurology Psychiatry; ATTEND Psychiatry & Neurology Psychiatry
DX: F10.229 Alcohol dependence with intoxication, unspecified (principal); R45.851 Suicidal ideations; Z11.52 Encounter for screening for COVID-19; Z28.310 Unvaccinated for COVID-19; S10.91XA Abrasion of unspecified part of neck, initial encounter; F17.290 Nicotine dependence, other tobacco product, uncomplicated; Z79.899 Other long term (current) drug therapy; X78.1XXA Intentional self-harm by knife, initial encounter; Y92.003 Bedroom of unspecified non-institutional (private) residence as the place of occurrence of the external cause
CPT/HCPCS: 80053; 80061; 82075; 83036; 84443; 85025; 87635; 99285